=== PATIENT | male | born 1995 | race Caucasian/White ===

== ENCOUNTER 2018-08-05 18:23 | Emergency (ER) | payer OTHER ==
[~2018-08-05] VITALS: Ht 185.4 cm; Wt 80.9 kg
[2018-08-05 18:27] VITALS: BP 131/78
[2018-08-05] MEDS ORDERED: LIDOCAINE 2%, 20ML SQ ONE (18:30)
[2018-08-05] MEDS ORDERED: DIPH,PERTUSS(ACELL),TET VAC/PF 0.5 ML IM-VACC ONE ×2 (18:30→18:35)
[2018-08-05] MEDS ORDERED: LIDOCAINE 1%-EPI 1:100K, 20ML ONE (18:55)
[2018-08-05] MEDS ORDERED: HYDROcodone/APAP 5/325 TABLET PO ONE (19:00)
[2018-08-05] MEDS ORDERED: HYDROcodone/APAP 5/325 TABLET ONE (19:04)
[2018-08-05] MEDS ORDERED: IBUPROFEN 200 MG TABLET ONE (19:12)
[2018-08-05] MEDS ORDERED: IBUPROFEN 200 MG TABLET PO ONE (19:30)
[2018-08-05] MEDS ORDERED: BACITRACIN ZINC OINT 500U/GM, 0.9 GM ONE (20:04)
== END 2018-08-05 20:24 | disposition home or self-care (01) ==
LOC: ED 20:18
DX: S51.811A Laceration without foreign body of right forearm, initial encounter (principal); Y29.XXXA Contact with blunt object, undetermined intent, initial encounter; Y93.89 Activity, other specified; Y92.009 Unspecified place in unspecified non-institutional (private) residence as the place of occurrence of the external cause; Y99.8 Other external cause status
CPT/HCPCS: 12032; 90471; 90715

== ENCOUNTER 2018-11-06 10:22 | Emergency (ER) | payer OTHER ==
[~2018-11-06] VITALS: Ht 185.4 cm; Wt 79.5 kg
[2018-11-06 10:25] VITALS: BP 113/60
[2018-11-06] MEDS ORDERED: DEXAMETHASONE 4 MG/ML, 5ML ONE (11:24)
[2018-11-06] MEDS ORDERED: DEXAMETHASONE 4 MG/ML, 1ML PO ONE (11:30)
--- NOTE | 2018-11-06 11:41 | NUR ---
Patient/Caregiver given discharge instructions and they have confirmed that they understand the instructions. Patient ambulatory with steady gait.
== END 2018-11-06 11:42 | disposition home or self-care (01) ==
LOC: ED 11:28
DX: B34.9 Viral infection, unspecified (principal)
CPT/HCPCS: 71046; 99283; J1100